=== PATIENT | female | born 1990 | race African-American/Black ===

== ENCOUNTER 2016-12-02 12:26 | Emergency (ER) | payer SELFPAY ==
--- NOTE | 2016-12-04 12:40 | ER ---
ADMIT: 12/02/2016 RM/LOC: ER [facility] MR#: [id number] [id number] [address]FRE[address] MUNGUIA [address] [facility] [place] [address] Emergency Room Report SEX: F AGE: 26 : 1990 DATE: 12/02/2016 Patient is a 26-year-old, who works in an [employer]. She says she has been having cough, fever, sinus pain, ears are hurting for the last 2 days and she worked yesterday but it was a short time and she was sent home. Advised to follow up with the doctor and then go back to work if and when we decide she needs to and she needs to bring a note. PAST MEDICAL HISTORY: Essentially negative. SOCIAL HISTORY: She is a smoker. MEDICATIONS: She takes no medication on a regular basis. ALLERGIES: NO ALLERGIES. PHYSICAL EXAMINATION: HEENT: She has tenderness in the frontal and maxillary sinuses. Mildly anxious. Right naris is occluded. There is congestion, tenderness. Ears are full. Tympanic membranes are dull bilaterally but no erythema noted. Posterior pharynx is erythematous. No exudate present. RESPIRATIONS: No splinting. No rales. ABDOMEN: Nontender. CVS: Regular in rate and rhythm. SKIN: Good color. EXTREMITIES: Nontender. PSYCH: Oriented x4. Mood and affect appropriate. She has someone who drove her here. We are not doing any x-rays. She is getting a shot of Decadron to help with the inflammation. Instructions given for care at home and a work excuse. CLINICAL IMPRESSION: Sinusitis, acute frontal with cough. She was given prednisone and a Z-Noel. Instructions to follow up and decrease smoking or better yet quit smoking. JUDY Gomez / Rodolfo Navarro MD / luciana JOB #: [id number] CC: Rodolfo Navarro MD, Attending Physician
== END 2016-12-02 14:15 | disposition home or self-care (01) ==
LOC: ER 12:26
DX: J01.10 Acute frontal sinusitis, unspecified (principal); F17.210 Nicotine dependence, cigarettes, uncomplicated